=== PATIENT | male | born 1960 | race Caucasian/White ===

== ENCOUNTER → 2016-12-04 | Outpatient (CLI) | payer MEDICAID | LOC: FIMAGING 08:44 | PROVIDERS: ATTEND Nurse Practitioner Family | DX: R22.32 Localized swelling, mass and lump, left upper limb (principal) ==

== ENCOUNTER 2018-12-12 22:39 | Inpatient (IN) | payer MEDICAID | END 2018-12-14 12:25 | disposition home or self-care (01) | LOC: F3N 12-13 00:53 ==